=== PATIENT | female | born 1995 | race Caucasian/White ===

== ENCOUNTER → 2021-08-18 | Outpatient (CLI) | payer BC | LOC: M WHC 15:07 | PROVIDERS: ATTEND Nurse Practitioner Family | DX: R10.2 Pelvic and perineal pain (principal); R59.1 Generalized enlarged lymph nodes ==

== ENCOUNTER → 2021-09-07 | Outpatient (CLI) | payer BC ==
[~2021-09-07] MED LIST: LIDOCAINE 1% MDV 20ML VIAL As Ordered ONE
[2021-09-07 09:44] VITALS: BP 160/101
== END ==
LOC: M IRPRO 08:55
PROVIDERS: ATTEND Surgery
DX: R59.0 Localized enlarged lymph nodes (principal)